=== PATIENT | female | born 1995 ===

== ENCOUNTER 2023-01-26 00:15 | Observation (INO) | payer BC ==
[2023-01-26] MEDS ORDERED: Terbutaline 1 MG/ML SDV SUBCUT PRN (01:04)
[2023-01-26] MEDS ORDERED: Misoprostol 25 MCG (1/4 of 100 MCG) Tab VAG PRN (01:04)
[2023-01-26] MEDS ORDERED: Water For Irrigation,Sterile 1,000 ML Container IRR PRN (01:15)
[2023-01-26] MEDS ORDERED: Sodium Chloride 0.9% 2.5 ML Syringe FLUSH PRN (01:15)
[2023-01-26] MEDS ORDERED: Misoprostol 200 MCG Tab PO PRN (01:15)
[2023-01-26] MEDS ORDERED: Sodium Chloride 0.9% 20 ML SDV IV PRN (01:15)
[2023-01-26] MEDS ORDERED: Oxytocin/0.9 % Sodium Chloride 30 UNIT/500 ML BAG IV SCH ×2 (01:15)
[2023-01-26] MEDS ORDERED: Sodium Chloride 0.9% 10 ML Syringe FLUSH PRN (01:15)
[2023-01-26] MEDS ORDERED: Lidocaine 1% 50 ML MDV INJECT PRN (01:15)
[2023-01-26] MEDS ORDERED: Methylergonovine 0.2 MG/1 ML Amp IM PRN (01:15)
[2023-01-26] MEDS ORDERED: Tranexamic Acid 1,000 MG in Sodium Chloride 0.9% 100 ML IV PRN (01:15)
[2023-01-26] MEDS ORDERED: Carboprost Tromethamine 250 MCG/1 mL Vial IM PRN (01:15)
[2023-01-26] MEDS ORDERED: Butorphanol 1 MG/ML SDV IVPUSH PRN (01:15)
[2023-01-26 01:31] LABS: HEMATOCRIT 34.9 % (36.0-46.0); MEAN CORPUSCULAR HEMOGLOBIN 32.3 pg (27.0-32.0); MEAN CORPUSCULAR HGB CONC 34.4 g/dL (31.0-37.0); MEAN CORPUSCULAR VOLUME 93.8 fL (80.0-98.0); MEAN PLATELET VOLUME 10.5 fL (7.40-12.00); RED BLOOD CELL COUNT 3.72 M/uL (4.30-5.90); WHITE BLOOD CELL COUNT,WBC 5.73 K/uL (4.0-11.0)
[2023-01-26] MEDS: Misoprostol 25 MCG (1/4 of 100 MCG) Tab VAG PRN ×4 (01:55→15:22)
[2023-01-26] MEDS: Misoprostol 25 MCG (1/4 of 100 MCG) Tab PO SCH ×4 (01:55→15:21)
[2023-01-26] MEDS ORDERED: Ampicillin 2 GM in Sodium Chloride 0.9% 100 ML IV ONE (02:45)
[2023-01-26] MEDS: Lactated Ringers 1,000 ML IV SCH ×2 (02:48→23:40)
[2023-01-26] MEDS: Ampicillin 1 GM in Sodium Chloride 0.9% 50 ML IV SCH ×4 (06:34→18:40)
[2023-01-26] MEDS ORDERED: Dexmedetomidine 200 MCG/2 ML SDV ONE (23:55)
[2023-01-26] MEDS ORDERED: Ropivacaine/PF 400 MG/200 ML PCA ONE (23:55)
[2023-01-27] MEDS ORDERED: ePHEDrine 50 MG/ML SDV IVPUSH PRN ×2 (00:27)
[2023-01-27] MEDS ORDERED: Phenylephrine HCl 0.5 MG/5 ML AMP IVPUSH PRN (00:27)
[2023-01-27] MEDS ORDERED: Ropivacaine HCl/PF 400 MG in Premix Bag 1 BAG EPIDUR SCH (00:30)
[2023-01-27] MEDS: Lactated Ringers 1,000 ML IV SCH ×2 (00:39→07:25)
[2023-01-27] MEDS ORDERED: Benzocaine/Menthol 20%-0.5% Spray 78 GM Cannister TOP PRN (10:18)
[2023-01-27] MEDS ORDERED: Bisacodyl 10 MG Supp RECTAL PRN (10:18)
[2023-01-27] MEDS ORDERED: oxyCODONE 5 MG Tab PO PRN (10:18)
[2023-01-27] MEDS ORDERED: Docusate Sodium 100 MG Cap PO PRN (10:18)
[2023-01-27] MEDS ORDERED: Acetaminophen 500 MG Tab PO PRN ×2 (10:18)
[2023-01-27] MEDS ORDERED: Witch Hazel Medicated Pads 40/Jar TOP PRN (10:18)
[2023-01-27] MEDS ORDERED: Lanolin 100% Cream 7 GM Tube TOP PRN (10:18)
[2023-01-27] MEDS ORDERED: Ibuprofen 400 MG Tab PO PRN (10:18)
[2023-01-27] MEDS ORDERED: Ibuprofen 800 MG Tab PO PRN (10:18)
[2023-01-28 06:06] LABS: HEMATOCRIT 30.1 % (36.0-46.0); HEMOGLOBIN 10.2 g/dL (12.0-16.0)
== END 2023-01-28 13:25 | disposition home or self-care (01) ==
LOC: MW.OBCHECK 00:15 → MW.OB 00:20 → MW.OBCHECK 01:14 → MW.OB 01:15
PROVIDERS: ADMIT Obstetrics & Gynecology; ATTEND Obstetrics & Gynecology Obstetrics
DX: O80 Encounter for full-term uncomplicated delivery (principal); I10 Essential (primary) hypertension; Z3A.39 39 weeks gestation of pregnancy; Z37.0 Single live birth
CPT/HCPCS: 36415; 51702; 59025; 59409; 85014; 85018; 85027; 86592; 86850; 86900; 86901; A9270; J0290; J2590; J2795; J3490; J7120; 01967